=== PATIENT | female | born 1980 | race Caucasian/White ===

== ENCOUNTER 2025-06-20 21:30 | Emergency (ER) | payer MEDICAID, SELFPAY ==
[2025-06-20 21:32] VITALS: BMI 47.9
[2025-06-20 21:41] VITALS: BP 123/65; PULSE 103; RESP 18; TEMP 37; O2SAT 95
[2025-06-20] MEDS: HYDROcodone/APAP 5/325 TABLET 1 TAB PO (22:16)
[2025-06-20] MEDS: DEXAMETHASONE SOD PHOS INJ 10 MG/ML VIAL IM (22:17)
[2025-06-20] MEDS: cefTRIAXone 1,000 MG, LIDOCAINE 1% 20 ML 2.1 ML IM (22:17)
--- NOTE | 2025-06-21 19:49 | PD.EDEAR ---
ED Ear RME/HPI General Chief complaint: Ear Stated complaint: PAIN L EAR Time Seen by Provider: 06/20/25 21:32 Arrival date/time: 06/20/25 21:30 This is a case of 45-year-old female with history of recurrent otitis externa on the left ear came in in the emergency room due to left ear pain for 3 days patient states that she was seen 2 weeks ago with the same symptoms where they put and placed left ear wick patient was discharged with Augmentin and eardrops which improved and resolve the pain recurrence of the symptoms thus patient decided to sought consult here in the emergency room Limitations: no limitations Related Data Home Medications ?Medication ?Instructions ?Recorded ?Confirmed [id number] 3.5 4 drp otic (ear) TID 03/28/19 03/28/19 mg-10,000 unit/mL-1 % ear drops,susp Previous Rx's ?Medication ?Instructions ?Recorded ciprofloxacin 0.3 %-dexamethasone 4 drop otic (ear) Q12H #7.5 mL 03/28/19 0.1 % ear drops,suspension (Ciprodex) hydrocodone 5 mg-acetaminophen 325 1 tab PO Q6H PRN pain #10 tabs 10/02/ mg tablet hydrocodone 5 mg-acetaminophen 325 1 tab PO BID PRN pain #10 tabs 01/03/23 mg tablet naproxen 500 mg tablet 500 mg PO BID PRN pain #30 tabs 05/03/23 ibuprofen 800 mg tablet 800 mg PO TID PRN pain #30 tabs 10/31/23 cephalexin 500 mg capsule 500 mg PO QID #40 caps 06/20/25 hydrocodone 5 mg-acetaminophen 325 1 tab PO Q6H PRN pain #12 tabs 06/20/25 mg tablet ofloxacin 0.3 % ear drops 5 drp otic (ear) BID 7 days #10 mL 06/20/25 Allergies Allergy/AdvReac Type Severity Reaction Status Date / Time No Known Allergies Allergy Verified 06/20/25 21:32 Review of Systems Review of Systems Systems Reviewed: All systems reviewed, normal except as documented Past Medical History Social History SMOKING STATUS: Never smoker ED Exam General Limitations: Present no limitations General appearance: Present alert, in no apparent distress and other (Physical examination patient is awake alert oriented not in distress nontoxic looking well-hydrated well-nourished) Head Head exam: Present atraumatic, normocephalic and normal inspection Eye Eye exam: Present normal appearance, PERRL and EOMI ENT ENT exam: Present normal exam, normal oropharynx, mucous membranes moist and other (Nose and throat exam is normal right ear exam were normal both tympanic membrane and ear canal left ear canal noted moderate tenderness swelling narrowed ear canal redness no foreign body no earwax) Neck Neck exam: Present normal inspection, full ROM and trachea midline; Absent tenderness, meningismus, lymphadenopathy or thyromegaly Chest Chest inspection: Present normal inspection and symmetric chest wall rise; Absent tenderness Respiratory Respiratory exam: Present normal lung sounds bilaterally Cardiovascular Cardiovascular exam: Present regular rate, normal rhythm and normal heart sounds; Absent bradycardia, tachycardia, irregular rhythm, systolic murmur or diastolic murmur Abdominal Exam Abdominal exam: Present soft and normal bowel sounds; Absent distention, tenderness, guarding, rebound, rigidity, diminished bowel sounds, hyperactive bowel sounds, hypoactive bowel sounds or organomegaly Extremities Exam Extremities exam: Present normal inspection and full ROM Back Exam Back exam: Present normal inspection and full ROM Neurological Exam Neurological exam: Present alert, oriented X3, CN II-XII intact, normal gait and reflexes normal; Absent motor sensory deficit Psychiatric Psychiatric exam: Present normal affect and normal mood Skin Skin exam: Present warm, dry, intact and normal color Course Quality Measures none Orders Category Date Time Status Dexamethasone Inj [Decadron Inj] Med 06/20/25 21:59 Discontinued 10 mg IM X1 ONE HYDROcodone*/APAP 5/325 [Crewe 5/325] Med 06/20/25 21:59 Discontinued 1 tab PO X1 ONE cefTRIAXone [Rocephin] 1,000 mg Med 06/20/25 21:59 Discontinued Lidocaine 1% 20 ml [Xylocaine 1% 20 ML] 2.1 ml IM X1 Vital Signs Vital signs: Vital Signs Temperature 98.6 F 06/20/25 21:41 Pulse Rate 103 H 06/20/25 21:41 Respiratory Rate 18 06/20/25 21:41 Blood Pressure 123/65 06/20/25 21:41 Pulse Oximetry (%) 95 06/20/25 21:41 Oxygen Delivery Method Room Air 06/20/25 21:41 Oxygen saturation is 95% in room air Ear MDM Narrative MDM Narrative:: This is a case of 45-year-old female with history of recurrent otitis externa on the left ear came in in the emergency room due to left ear pain for 3 days patient states that she was seen 2 weeks ago with the same symptoms where they put and placed left ear wick patient was discharged with Augmentin and eardrops which improved and resolve the pain recurrence of the symptoms thus patient decided to sought consult here in the emergency room physical examination patient is awake alert oriented not in distress nontoxic looking well-hydrated well-nourished right ear exam both tympanic membrane and ear canal were normal left ear canal showed a tenderness swelling narrowed left ear canal with redness no foreign body no ear wick which I confirmed with Dr. Street and he did not show also no earwax tympanic membrane were intact redness but no bulging no retracted based on my physical examination and history patient symptoms suggestive of left otitis externa recurrent patient was given ceftriaxone IM here in the emergency room Crewe and dexamethasone patient was discharged with Bactrim and ofloxacin eardrop she was advised to follow-up with PCP in 2 days for reevaluation and the importance to see an ENT specialist for further evaluation and treatment of recurrent left otitis externa worsening symptoms or any emergent concern return precaution in the ER is advised Patient was discharged with comfortable condition walking with stable gait. Patient verbalized no further complains explained diagnosis and answered patient question. Patient is comfortable with the proposed management plan including the need to follow up with his/her primary care physician and any specialist if applicable Discussed patient for any urgent condition or worsening sx, He/She needed to go to emergency room immediately or call 911. Patient acknowledge the responsibility to follow up as instructed and to monitor her/his symptoms. For any persistence of the symptoms for more than 3-5 days return precaution advised. Discussed the result of the test and was given printed discharge instruction Patient data External records reviewed:: [facility] previous records Clinical information provided by:: patient Social determinants that could affect healthcare access:: none Patient has the following chronic illnesses:: None How is presenting disease/condition affected by chronic disease/condition?: no chronic disease Evaluation data The following diagnostics were reviewed and interpreted by me:: other (specify) (None) Lab and/or radiology exams considered but not ordered:: None Interpretation Summary: None Medications / Prescriptions Medications or Prescriptions considered but not ordered:: Given Medication administrations:: Medication Administration History Discontinued Medications Hydrocodone Bitart/Acetaminophen (Hydrocodone/Apap 5/325 Tablet) 1 tab PO X1 ONE Stop: 06/20/25 22:00 Last Admin: 06/20/25 22:16 Dose: 1 tab Documented By: OA Ceftriaxone Sodium 1,000 mg/ (Lidocaine HCl 2.1 ml) 0 mg IM X1 ONE Stop: 06/20/25 22:00 Last Admin: 06/20/25 22:17 Dose: 1,000 mg Documented By: OA Dexamethasone Sodium Phosphate (Dexamethasone Sod Phos Inj 10 Mg/Ml Vial) 10 mg IM X1 ONE Stop: 06/20/25 22:00 Last Admin: 06/20/25 22:17 Dose: 10 mg Documented By: OA Given Consultations Consultation(s) initiated? (list below): No Diagnosis Ear Differential Diagnosis: otitis externa, foreign body in ear and cerumen impaction Most likely diagnosis given after review of the tests above:: Left otitis externa Admission Indicated Admission indicated?: not indicated Explain why admission is indicated or not indicated:: Not indicated Admission Request Was there a request for admission?: No Admission Attestation Admission request attestation: Not indicated Disposition Plan Disposition Plan: Discharge Discharge Attestation Discharge Attestation: The patient and all family members were given an opportunity to ask questions and understood the discharge instructions. Discharge instructions specifically effects, indications for sooner follow up or return to the emergency department, and the expected course of current diagnosis. Patient condition: Stable Discharge Plan Plan Patient Disposition: HOME (Self Care) Patient condition on transfer: Stable Prescriptions/Referrals Prescriptions/Med Rec: New cephalexin 500 mg capsule 500 mg PO QID Qty: 40 0RF hydrocodone-acetaminophen 5-325 mg tablet 1 tab PO Q6H MDD max 4 tabs per day PRN (Reason: pain) Qty: 12 0RF ofloxacin 0.3 % drops 5 drp otic (ear) BID 7 Days Qty: 10 0RF No Action ofwhlzow-kccopwxsl-PK 3.5-10,000-1 mg/mL-unit/mL-% Drops,Suspension 4 drp OTIC (EAR) TID Ciprodex 0.3-0.1 % drops,suspension 4 drop BOTH EARS Q12H Qty: 7.5 0RF Rx Instructions: Left ear hydrocodone-acetaminophen 5-325 mg tablet 1 tab PO Q6H MDD 3 PRN (Reason: pain) Qty: 10 0RF hydrocodone-acetaminophen 5-325 mg tablet 1 tab PO BID MDD 2 PRN (Reason: pain) Qty: 10 0RF ibuprofen 800 mg tablet 800 mg PO TID PRN (Reason: pain) Qty: 30 0RF naproxen 500 mg tablet 500 mg PO BID PRN (Reason: pain) Qty: 30 0RF Problem List Clinical Impression: Acute otitis externa of left ear Patient/Caregiver Discharge Instructions Education Materials: ED External Ear Infection (Adult) Additional Instructions: Follow-up with your primary care physician in 2 days for reevaluation worsening symptoms or any emergent concern call 911 or go to the nearest emergency room take your medication as directed finish the course of antibiotic keep the area clean and dry no Q-tips no cotton balls prevent water to enter both ears is advised Print Language: Albanian Stand Alone Forms: Callie Award Info., Patient Portal Info Letter PA/LIQUIFIED [employer] G[employer] TECHNICIAN Supervising Physician PA/LIQUIFIED NAT[employer] G[employer] TECHNICIAN Supervising Physician: Dr. Street
== END 2025-06-20 22:18 | disposition home or self-care (01) ==
LOC: SERX 22:23
PROVIDERS: Emergency Provider Emergency Medicine; PCP Family Medicine
DX: H60.502 Unspecified acute noninfective otitis externa, left ear (principal)
CPT/HCPCS: 96372; 99282; J0696; J1100; J3490; A9270

== ENCOUNTER 2025-07-11 17:50 | Emergency (ER) | payer MEDICAID, SELFPAY ==
[2025-07-11 18:15] VITALS: BP 124/80; PULSE 98; RESP 16; TEMP 36.9; O2SAT 97; BMI 48.0
--- NOTE | 2025-07-11 19:26 | XR_ITS ---
EXAMINATION: Ankle, left 2 views. Technique: AP lateral left ankle 3 views Date and time: July 11, 2025, 193 hours INDICATIONS: Injury to the ankle yesterday, ankle pain. FINDINGS: Bimalleolar soft tissue swelling. No fracture or dislocation IMPRESSION: No fracture or dislocation
--- NOTE | 2025-07-11 19:26 | XR_ITS ---
Examination: Foot, left, 3 views Technique: AP, oblique, lateral views foot, 3 views Date and time of exam: July 11, 2025, 1931 hours INDICATIONS: Injured the foot 1 day ago, foot pain. FINDINGS: No acute fracture. No dislocation No foreign body IMPRESSION: No acute fracture
--- NOTE | 2025-10-09 07:11 | EDNOTE_ITS ---
Lower Extremity Injury RME/HPI General Chief Complaint: Ankle/Foot Injury Stated Complaint: LEFT ANKLE PAIN Time Seen by Provider: 07/11/25 18:49 Arrival date/time: 07/11/25 17:50 This is a case of 25-year-old female with no medical swelling patient states that this morning she accidentally twisted the knee pain swelling no other injury noted Limitations: no limitations Related Data Home Medications ?Medication ?Instructions ?Recorded ?Confirmed [id number] 3.5 4 drp otic (ear) TID 03/28/19 03/28/19 mg-10,000 unit/mL-1 % ear drops,susp Previous Rx's ?Medication ?Instructions ?Recorded ciprofloxacin 0.3 %-dexamethasone 4 drop otic (ear) Q1 2H #7.5 mL 03/28/19 0.1 % ear drops,suspension (Ciprodex) hydrocodone 5 mg-acetaminophen 325 1 tab PO Q6H PRN pa in #10 tabs 10/02/21 mg tablet hydrocodone 5 mg-acetaminophen 325 1 tab PO BID PRN pa in #10 tabs 01/03/23 mg tablet naproxen 500 mg tablet 500 mg PO BID PRN pain #30 t abs 05/03/23 ibuprofen 800 mg tablet 800 mg PO TID PRN pain #30 t abs 10/31/23 cephalexin 500 mg capsule 500 mg PO QID #40 caps 06/20 hydrocodone 5 mg-acetaminophen 325 1 tab PO Q6H PRN pa in #12 tabs 06/20/25 mg tablet ibuprofen 800 mg tablet 800 mg PO Q8H PRN pain #20 t abs 07/11/25 Allergies Allergy/AdvReac Type Severity Reaction Status Date / Time No Known Allergies Allergy Verified 06/20/25 21:32 Review of Systems Review of Systems Systems Reviewed: All systems reviewed, normal except as documented Past Medical History Social History SMOKING STATUS: Never smoker ED Exam General Limitations: Present no limitations General appearance: Present alert and in no apparent distress Head Head exam: Present atraumatic Eye Eye exam: Present normal appearance, PERRL and EOMI ENT ENT exam: Present normal exam, normal oropharynx and mucous membranes moist Neck Neck exam: Present normal inspection, full ROM and trachea midline Chest Chest inspection: Present normal inspection and symmetric chest wall rise Respiratory Respiratory exam: Present normal lung sounds bilaterally Cardiovascular Cardiovascular exam: Present regular rate, normal rhythm and normal heart sounds Abdominal Exam Abdominal exam: Present soft and normal bowel sounds Extremities Exam Extremities exam: Present normal inspection and full ROM Expanded Lower Extremity Exam Knee exam: Present normal inspection and full ROM; Absent tenderness, swelling, abrasion, laceration, ecchymosis, deformity, crepitus, dislocation, erythema, effusion, anterior drawer sign, posterior draw sign, pain with valgus, laxity with valgus, pain with varus, laxity with varus or knee extension intact Lower leg exam: Present normal inspection, full ROM, Achilles tendon intact and other (NEGTAOIVE THOMP[SON SIGNS); Absent tenderness, swelling, abrasion, laceration, ecchymosis, deformity, crepitus, dislocation, erythema, palpable cord or Homans' sign Ankle exam: Present tenderness, swelling and other (Mild tenderness on the left ankle and foot no crepitation no deformity mild swelling ROM limited due to pain neurovascular intact); Absent full ROM, abrasion, laceration, ecchymosis, deformity, crepitus, dislocation, erythema, tenderness over talofibular lig or anterior draw sign Foot/toe exam: Present tenderness and swelling; Absent abrasion, laceration, ecchymosis, deformity, crepitus, dislocation, erythema, amputation, puncture wound, foreign body, calcaneal tenderness, tenderness at base of 5th metatarsal, nail avulsion or subungual hematoma Back Exam Back exam: Present normal inspection and full ROM Neurological Exam Neurological exam: Present alert, oriented X3 and CN II-XII intact Psychiatric Psychiatric exam: Present normal affect and normal mood Skin Skin exam: Present warm, dry, intact and normal color Course Quality Measures none Orders Category Date Time Status Splint / Immobilizer STAT Care 07/11/25 22:10 Active XR ankle LT 2V Stat Exams 07/11/25 19:26 Completed XR foot comp LT min 3V Stat Exams 07/11/25 19:26 Completed Vital Signs Vital signs: Vital Signs Temperature 98.5 F 07/11/25 18:15 Pulse Rate 98 07/11/25 18:15 Respiratory Rate 16 07/11/25 18:15 Blood Pressure 124/80 07/11/25 18:15 Pulse Oximetry (%) 97 07/11/25 18:15 Oxygen Delivery Method Room Air 07/11/25 18:15 VS STABLE Extremity Injury, Lower MDM Narrative MDM Narrative:: Patient was discharged with comfortable condition walking with stable gait. Patient verbalized no further complains explained diagnosis and answered patient question. Patient is comfortable with the proposed management plan including the need to follow up with his/her primary care physician and any specialist if applicable Discussed patient for any urgent condition or worsening sx, He/She needed to go to emergency room immediately or call 911. Patient acknowledge the responsibility to follow up as instructed and to monitor her/his symptoms. For any persistence of the symptoms for more than 3-5 days return precaution advised. Discussed the result of the test and was given printed discharge instruction Patient data External records reviewed:: [facility] previous records Clinical information provided by:: patient Social determinants that could affect healthcare access:: none Patient has the following chronic illnesses:: NONE How is presenting disease/condition affected by chronic disease/condition?: no chronic disease Evaluation data The following diagnostics were reviewed and interpreted by me:: radiology exam(s) Lab and/or radiology exams considered but not ordered:: REVIEWED Interpretation Summary: REVIEWED Medications / Prescriptions Medications or Prescriptions considered but not ordered:: GIVEN Medication administrations:: GIVEN Consultations Consultation(s) initiated? (list below): No Diagnosis Extremity Injury, Lower Differential Diagnosis: ankle sprain and strain Most likely diagnosis given after review of the tests above:: LEFT ANKLE SPRAIN LEFT FOOT SPRAIN Admission Indicated Admission indicated?: not indicated Explain why admission is indicated or not indicated:: NOT INDICTAED Admission Request Was there a request for admission?: No Admission Attestation Admission request attestation: NOT INNDICATED Disposition Plan Disposition Plan: Discharge Discharge Attestation Discharge Attestation: The patient and all family members were given an opportunity to ask questions and understood the discharge instructions. Discharge instructions specifically effects, indications for sooner follow up or return to the emergency department, and the expected course of current diagnosis. Patient condition: Stable Discharge Plan Plan Patient Disposition: HOME (Self Care) Patient condition on transfer: Stable Prescriptions/Referrals Prescriptions/Med Rec: New ibuprofen 800 mg tablet 800 mg PO Q8H PRN (Reason: pain) Qty: 20 0RF No Action yutvfims-xrgrxpnyb-BQ 3.5-10,000-1 mg/mL-unit/mL-% Drops,Suspension 4 drp OTIC (EAR) TID Ciprodex 0.3-0.1 % drops,suspension 4 drop BOTH EARS Q12H Qty: 7.5 0RF Rx Instructions: Left ear hydrocodone-acetaminophen 5-325 mg tablet 1 tab PO Q6H MDD 3 PRN (Reason: pain) Qty: 10 0RF hydrocodone-acetaminophen 5-325 mg tablet 1 tab PO BID MDD 2 PRN (Reason: pain) Qty: 10 0RF ibuprofen 800 mg tablet 800 mg PO TID PRN (Reason: pain) Qty: 30 0RF cephalexin 500 mg capsule 500 mg PO QID Qty: 40 0RF hydrocodone-acetaminophen 5-325 mg tablet 1 tab PO Q6H MDD max 4 tabs per day PRN (Reason: pain) Qty: 12 0RF naproxen 500 mg tablet 500 mg PO BID PRN (Reason: pain) Qty: 30 0RF Referrals: Devyn Gonsales MD [Primary Care Provider, Family Practice] - In 1 week Problem List Clinical Impression: Left ankle sprain, Sprain of foot, left Patient/Caregiver Discharge Instructions Education Materials: Treating Ankle Sprains, ED MELVI Wrap, ED Foot Sprain, ED Splints and Casts Additional Instructions: Follow-up with your primary care physician in 2 days for reevaluation worsening symptoms or any emergent concern call 911 or go to the nearest emergency room as well every 2 hours for 30 minutes for 24 hours then alternate with warm compress elevate to decrease swelling give medication as directed Print Language: Mongolian Stand Alone Forms: Callie Award Info., Patient Portal Info Letter PA/MELISSA Supervising Physician DARIEL/MELISSA Supervising Physician: Dr. Persaud
== END 2025-07-11 22:03 | disposition home or self-care (01) ==
PROVIDERS: Emergency Provider Emergency Medicine; PCP Family Medicine
DX: S93.402A Sprain of unspecified ligament of left ankle, initial encounter (principal); X50.0XXA Overexertion from strenuous movement or load, initial encounter
CPT/HCPCS: 73600; 73630; 99282